=== PATIENT | female | born 1990 | race Hispanic/Latino ===

== ENCOUNTER 2019-09-14 23:02 | Inpatient (IN) | payer OTHER ==
[~2019-09-14] VITALS: Ht 149.9 cm; Wt 70.0 kg
--- NOTE | 2019-09-15 02:08 | NUR ---
09/15/19 0208 Liza Handy 0148 PT ARRIVED TO ROOM WITH [facility]BC RN AND AT BEDSIDE. PT RESTING IN BED WITH NO CONCERNS. PT DENIES PAIN AND SPINAL LEVEL T-6 PT DENIES SOB OR NAUSEA. 0150 VSS. HOB INCREASED SLIGHTLY. BABY TO CHEST WITH [facility] RN. FUNDAL CHECK EDUCATION GIVEN. IV INFUSING WITH 20 PIT. SPINAL EDUCATION GIVEN 0200 PT RESTING WITH BABY TO CHEST.
--- NOTE | 2019-09-15 08:02 | OR ---
[facility] [address] [place], [place] [address] Signed DATE OF OPERATION: 09/15/2019 SURGEON: Tru Abebe MD Patient of Dr. Abebe. PREOPERATIVE DIAGNOSES: 1. Premature rupture of membranes. 2. Term . 3. Previous section. POSTOPERATIVE DIAGNOSIS: 1. Premature rupture of membranes. 2. Term . 3. Previous section. PROCEDURE PERFORMED: Repeat low transverse segment section, delivery of live male . CURATOR OF PHOTOGRAPHY AND PRINTS: Ekta Hanson MD. ANESTHESIA: Spinal. ESTIMATED BLOOD LOSS: 600 mL. COMPLICATIONS: None. DRAINS: Vasquez to bladder. FINDINGS: Live male infant. Apgars 9 and 9. Weight 6 pounds 10 ounces. Normal uterus, normal tubes and ovaries bilateral. DESCRIPTION OF PROCEDURE: The patient was brought to the operating room, placed in supine position. After Electronically Signed By: TRU ABEBE MD 09/15/19 0802 PATIENT NAME: KAROL CONNELL OPERATIVE REPORT DATE OF : [birth year] REPORT #: [id number] PHYSICIAN: TRU ABEBE MD PCP: TRU ABEBE MD REPORT IS CONFIDENTIAL AND NOT TO BE RELEASED WITHOUT AUTHORIZATION [facility] [address] [place] [id number] Signed adequate spinal anesthesia was obtained, was prepped and draped in usual sterile fashion. Vasquez catheter was placed in the bladder. A Pfannenstiel skin incision was made with a scalpel through previous surgical scar. Subcutaneous tissue was dissected with the scalpel and the Bovie. The fascia was nicked with scalpel and extended in transverse fashion using curved scissors. The underlying abdominal musculature was bluntly and sharply from the fascia above and below the incision. The abdominal musculature was bluntly and sharply along the midline. The peritoneum was grasped with hemostats, elevated, nicked with scissors, extended in vertical fashion. The Roge self-retaining retractor was inserted into the incision and tightened in place. The lower uterine segment was identified. The bladder was noted to be slightly elevated, but the lower uterine segment was free of the bladder any adhesions, so a small incision was made in the midline using a scalpel. The incision was then extended in transverse fashion using finger dissection. Bulging bag of clear fluid came from the incision. This was opened with pickups teeth and the head easily delivered from the incision. The infant was in DURAN presentation. The rest of the infant was then easily delivered from the incision and the cord doubly clamped and cut. The infant passed off table in good condition to awaiting nurse. Cord blood was obtained. The placenta was manually removed. Uterine cavity was explored with a lap pad to remove any retained membranes. An angle stitch of 0 Monocryl was placed at one end of the incision and a running locking stitch of 0 Monocryl starting at the other end used to close the incision. A second running stitch of 0 Monocryl was used to imbricate the first layer. There were a couple of small areas that were still bleeding. These were controlled with [id number] stitch of 0 Monocryl. When good hemostasis was obtained, the pelvis was irrigated, suctioned, and examined any superficial bleeding spots, cauterized with Bovie. When good hemostasis was obtained, the Roge self-retaining retractor was removed and sheet of ACell placed over lower uterine segment. The anterior wall peritoneum was then closed using running stitch of 2-0 Vicryl suture. The abdominal musculature was reapproximated using interrupted stitches of 0 Vicryl suture. There were 2 small areas in the muscle that had slight oozing. These were controlled with [id number] stitches of 0 Vicryl suture. The abdominal musculature was irrigated, suctioned, and examined of any superficial bleeding spots cauterized with the Bovie. When good hemostasis was obtained, powdered ACell was sprinkled over the abdominal musculature and the fascia was closed using 2 running stitches of 0 Vicryl suture meeting in the midline. Subcutaneous tissue was irrigated, suctioned, examined, any bleeding spots cauterized with the Bovie. Subcutaneous tissue was closed using interrupted stitches of 3-0 Vicryl suture and the skin reapproximated using skin clips. The patient tolerated the procedure well, went to recovery room in good condition. Sponge, needle, and instrument counts were correct at the end of the procedure. Electronically Signed By: TRU ABEBE MD 09/15/19 0802 PATIENT NAME: KAROL CONNELL OPERATIVE REPORT DATE OF : [birth year] REPORT #: [id number] PHYSICIAN: TRU ABEBE MD PCP: TRU ABEBE MD REPORT IS CONFIDENTIAL AND NOT TO BE RELEASED WITHOUT AUTHORIZATION [address] [address] Signed Tru Abebe MD MJArabella/MODL /[id number] Copies: ~ Electronically Signed By: TRU ABEBE MD 09/15/19 0802 PATIENT NAME: KAROL CONNELL OPERATIVE REPORT DATE OF : [birth year] REPORT #: [id number] PHYSICIAN: TRU ABEBE MD PCP: TRU ABEBE MD REPORT IS CONFIDENTIAL AND NOT TO BE RELEASED WITHOUT AUTHORIZATION
--- NOTE | 2019-09-15 13:49 | PR ---
[facility] [address] [facility] [place], [place] [address] Signed PP Progress Notes Datetime Report Generated by CPN: 09/15/2019 13:49 SUBJECTIVE: [id number] Pain: Within normal limits Nausea/Vomiting: Denies Vital Signs: [id number] Vital Signs: Reviewed; Within Normal Limits EXAM: [id number] Abdomen/Uterus: Normal Lochia: Normal Extremities: Normal Incision: Normal IMPRESSION/PLAN/PROCEDURES: [id number] Impression: Normal progression Plan: Continue present management Procedures: None Progress Notes: Doing well, without complaint. D/C IV and Vasquez today Signing Physician: Tru Oakley MD Copies: ~ *Electronically Signed* 09/15/19 1349 TRU OAKLEY MD PATIENT NAME: KOKAROL Arabella PROGRESS NOTE DATE OF : [birth year] PHYSICIAN: TRU OAKLEY MD RPT #: [id number] REPORT IS CONFIDENTIAL AND NOT TO BE RELEASED WITHOUT AUTHORIZATION
--- NOTE | 2019-09-16 09:50 | PR ---
[facility] [address] [facility] [place] [address] Signed PP Progress Notes Datetime Report Generated by CPN: 09/16/2019 09:50 SUBJECTIVE: [id number] Pain: Within normal limits Nausea/Vomiting: Denies Vital Signs: [id number] Vital Signs: Reviewed; Within Normal Limits Notable Details: PP Hgb/Hct = 10.7/32.0 EXAM: [id number] Abdomen/Uterus: Normal Lochia: Normal Extremities: Normal Incision: Normal IMPRESSION/PLAN/PROCEDURES: [id number] Impression: Normal progression Plan: Continue present management Procedures: None Progress Notes: Doing well, without complaint. Plan home tomorrow. Signing Physician: Tristan Oakley MD Copies: ~ *Electronically Signed* 09/16/19 0950 TRISTAN OAKLEY MD PATIENT NAME: KAROL CONNELL PROGRESS NOTE DATE OF : [birth year] PHYSICIAN: TRISTAN OAKLEY MD RPT #: [id number] REPORT IS CONFIDENTIAL AND NOT TO BE RELEASED WITHOUT AUTHORIZATION
--- NOTE | 2019-09-17 08:42 | PR ---
[facility] [address] [facility] [place] [address] Signed PP Progress Notes Datetime Report Generated by CPN: 09/17/2019 08:42 SUBJECTIVE: [id number] Pain: Within normal limits Nausea/Vomiting: Denies Vital Signs: [id number] Vital Signs: Reviewed; Within Normal Limits Notable Details: PP Hgb/Hct = 10.7/32.0 EXAM: [id number] Abdomen/Uterus: Normal Lochia: Normal Extremities: Normal Incision: Normal IMPRESSION/PLAN/PROCEDURES: [id number] Impression: Normal progression Plan: Discharge Procedures: None Progress Notes: Doing well, without complaint, ready to go home. Signing Physician: Tristan Oakley MD Copies: ~ *Electronically Signed* 09/17/19 0842 TRISTAN OAKLEY MD PATIENT NAME: KAROL CONNELL PROGRESS NOTE DATE OF : [birth year] PHYSICIAN: TRISTAN OAKLEY MD RPT #: [id number] REPORT IS CONFIDENTIAL AND NOT TO BE RELEASED WITHOUT AUTHORIZATION
== END 2019-09-17 12:06 | disposition home or self-care (01) | DRG 787 ==
LOC: FBCO 23:02 → FBC 23:07 → FBCO 23:07 → FBC 09-15 00:07 → MS 09-15 23:07 → FBC 09-15 23:08
PROVIDERS: ADMIT General Practice
PROC: 10D00Z1 Extraction of Products of Conception, Low, Open Approach (ICD-10-PCS; principal; 2019-09-15 00:30)
DX: O34.211 Maternal care for low transverse scar from previous cesarean delivery (principal); O23.43 Unspecified infection of urinary tract in pregnancy, third trimester; N85.8 Other specified noninflammatory disorders of uterus; Z37.0 Single live birth; O42.92 Full-term premature rupture of membranes, unspecified as to length of time between rupture and onset of labor; Z3A.37 37 weeks gestation of pregnancy; Z88.8 Allergy status to other drugs, medicaments and biological substances; Z86.19 Personal history of other infectious and parasitic diseases
CPT/HCPCS: 01961; 36415; 85027; A9270; J0690; J1885; J2001; J2270; J2274; J2405; J2590; J7121